=== PATIENT | male | born 1955 | race Caucasian/White ===

== ENCOUNTER 2019-02-17 22:32 | Emergency (ER) | payer SELFPAY ==
[2019-02-17] MEDS ORDERED: DIPH/PERTUSS(ACELL)/TETANUS VAC/PF 0.5 ML SYR (>=10YO) IM ONE (22:36)
[2019-02-17 22:41] VITALS: BP 117/68
[2019-02-17] MEDS ORDERED: LIDOCAINE 1%/EPINEPHRINE INJ 20 ML VIAL INJ ONE (23:32)
--- NOTE | 2019-02-17 23:40 | ER Document Report ---
ED Wound - General Chief Complaint: Laceration Stated Complaint: FALL,LACERATIONS ON BUTT Time Seen by Provider: 02/17/19 23:25 Notes: Patient is a 63-year-old male that comes to the emergency department for chief complaint of fall and lacerations. He reportedly slipped, landed on broken pieces of a glass dish soap container, patient landed on his buttocks and caused a laceration mainly to the right buttock and a small laceration to the side of the left thigh. No head injury reported. Patient is not on a blood thinner but he was drinking alcohol tonight. Tetanus is not up-to-date. No other injuries or complaints reported. TRAVEL OUTSIDE OF THE [place] IN LAST 30 DAYS: No - Related Data Allergies/Adverse Reactions: No Known Allergies Allergy (Unverified 02/17/19 22:33) Past Medical History - General Information source: Patient - Social History Smoking Status: Never Smoker Frequency of alcohol use: Social Drug Abuse: None Lives with: Family Family History: Reviewed & Not Pertinent - Immunizations Immunizations up to date: No Hx Diphtheria, Pertussis, Tetanus Vaccination: Yes Review of Systems - Review of Systems Constitutional: No symptoms reported EENT: No symptoms reported Cardiovascular: No symptoms reported Respiratory: No symptoms reported Gastrointestinal: No symptoms reported Genitourinary: No symptoms reported Male Genitourinary: No symptoms reported Musculoskeletal: No symptoms reported Skin: See HPI Hematologic/Lymphatic: No symptoms reported Neurological/Psychological: No symptoms reported Physical Exam - Vital signs Vitals: Temp Pulse Resp BP Pulse Ox 97.8 F 67 18 117/68 95 02/17/19 22:39 02/17/19 22:39 02/17/19 22:39 02/17/19 22:39 02/17/19 22:39 - Notes Notes: GENERAL: Alert, conversational, cooperative, no apparent distress. HEAD: Normocephalic, atraumatic. EYES: Pupils equal, round, and reactive to light. Extraocular movements intact. ENT: Oral mucosa moist, tongue midline. Oropharynx unremarkable. Airway patent. Nares patent, no nasal septal hematoma, TM's intact. NECK: Full range of motion. Supple. Trachea midline. LUNGS: Clear to auscultation bilaterally, no wheezes, rales, or rhonchi. No respiratory distress. HEART: Regular rate and rhythm. No murmur ABDOMEN: Soft, non-tender. Non-distended. Bowel sounds present in all 4 quadrants. GENITOURINARY: Deferred EXTREMITIES: Moves all 4 extremities spontaneously. No edema, normal radial and dorsalis pedis pulses bilaterally. No cyanosis. BACK: no cervical, thoracic, lumbar midline tenderness. No saddle anesthesia, normal distal neurovascular exam. Moves all extremities in full range of motion. NEUROLOGICAL: Alert and oriented x3. Normal speech. Cranial nerves II through XII grossly intact. PSYCH: Normal affect, normal mood. SKIN: Warm and flushed skin. 3 cm laceration over the left lateral proximal thigh which is partial-thickness. There is a very large, full-thickness, irregular flap laceration over the inferior mid right buttocks. This is over 10 cm in length. Remaining skin exam unremarkable. Course - Re-evaluation Re-evalutation: There is an impressive large laceration to the inferior mid right buttock extending all the way through the adipose tissue of the buttock and down to the muscle, does not appear to be involving the muscle. However patient has full range of motion of the leg/hip, there is no evidence of large vessel involvement, there is no neurological deficit, there is normal distal neurovascular exam. Small laceration over the left thigh is superficial. I did discuss the wound and repair with Dr. Crowley. Tetanus updated. After all both wounds were repaired, patient placed on Keflex prophylactically because of the blast wound, wound was explored and irrigated very thoroughly, no evidence of foreign body. No other injuries. I did discuss care and caution with the patient and family in detail. Discussed return precautions. They state understanding and agreement. - Vital Signs Vital signs: Temp Pulse Resp BP Pulse Ox 97.8 F 67 18 117/68 95 02/17/19 22:39 02/17/19 22:39 02/17/19 22:39 02/17/19 22:39 02/17/19 22:39 Procedures - Laceration/Wound Repair Right buttock Wound length (cm): 11 Wound's Depth, Shape: Irregular, Flap Laceration pre-procedure: Sterile PPE donned, Sterile drapes applied, Shur-Clens applied Anesthetic type: 1% Lidocaine w/epi Volume Anesthetic (mLs): 16 Wound explored: Clean, No foreign body removed Irrigated w/ Saline (mLs): 300 Wound Repaired With: Sutures Suture Size/Type: 4:0, Nylon Layer Closure?: Yes Deep Layer Suture Size/Type: 5:0 Number Deep Layer Sutures: 10 Post-procedure NV exam normal: Yes Complications: No Notes: After wound was thoroughly irrigated and anesthetized, I placed a subcuticular anchor at the angle, then a superficial anchor in the same angle, afterwards multiple subcuticular stitches were placed on both sides of this. After this running sutures were placed to close the wound superiorly. Left lateral proximal thigh Wound length (cm): 3 Wound's Depth, Shape: Superficial, Linear Laceration pre-procedure: Sterile PPE donned, Sterile drapes applied, Shur-Clens applied Anesthetic type: 1% Lidocaine w/epi Volume Anesthetic (mLs): 4 Wound explored: Clean, No foreign body removed Wound Repaired With: Sutures Suture Size/Type: 4:0, Nylon Number of Sutures: 5 Layer Closure?: No Post-procedure NV exam normal: Yes Complications: No Discharge - Discharge Clinical Impression: Laceration of buttock Qualifiers: Encounter type: initial encounter Laterality: right Qualified Code(s): S31.811A - Laceration without foreign body of right buttock, initial encounter Thigh laceration Qualifiers: Encounter type: initial encounter Laterality: left Qualified Code(s): S71.112A - Laceration without foreign body, left thigh, initial encounter Condition: Stable Disposition: HOME, SELF-CARE Additional Instructions: The sutures need to be removed in approximately 10 days. Keep clean, clean with soap and water, dab dry, you can apply topical antibiotic. Avoid soaking, scrubbing, or quick/sudden movements. Be very careful the first few days as you could break this open. Take preventative antibiotic as prescribed. Take pain medication if needed, also take the stool softener Colace if you do to avoid constipation. Return for any concerning symptoms including developing pain, redness, discolored discharge, swelling, or any other concerning or worsening symptoms. Prescriptions: Cephalexin Monohydrate [Keflex 500 mg Capsule] 500 mg PO QID 5 Days #20 capsule Docusate Sodium [Colace 100 mg Capsule] 100 mg PO ASDIR PRN #30 capsule PRN Reason: Morphine Sulfate [Morphine Ir 15 Mg Tablet] 15 mg PO TID PRN #12 tablet PRN Reason:
[2019-02-18] MEDS ORDERED: OXYCODONE-ACETAMINOPHEN 5-325 MG TABLET PO ONE (00:27)
[2019-02-18] MEDS ORDERED: ONDANSETRON 4 MG TAB.RAPDIS PO ONE (00:27)
[2019-02-18] MEDS ORDERED: LIDOCAINE 1%/EPINEPHRINE INJ 20 ML VIAL ONE (01:16)
[2019-02-18] MEDS ORDERED: CEPHALEXIN 500 MG CAPSULE PO ONE (01:25)
== END 2019-02-18 01:53 | disposition home or self-care (01) ==
LOC: ER 22:32
DX: S31.811A Laceration without foreign body of right buttock, initial encounter (principal); S71.112A Laceration without foreign body, left thigh, initial encounter; W18.2XXA Fall in (into) shower or empty bathtub, initial encounter; W25.XXXA Contact with sharp glass, initial encounter; Z23 Encounter for immunization
CPT/HCPCS: 99282; 90471; 90715; 12034; 12002; S0119; J3490